=== PATIENT | female | born 2000 | race Caucasian/White ===

== ENCOUNTER 2019-02-28 10:20 | Emergency (ER) | payer SELFPAY ==
[~2019-02-28] VITALS: Ht 167.6 cm; Wt 92.0 kg
[2019-02-28 10:23] VITALS: Ht 167.6 cm; Wt 92.0 kg
--- NOTE | 2019-02-28 10:44 | ERD ---
ER Documentation Chief Complaint Chief Complaint left foot pain/injury HPI Patient is a 18 years old female at 12 weeks gestation presenting to the clinic for severe left ankle pain and swelling since yesterday, sporadically. Nestor lira admits to left ankle injury in August while visiting [place]. Patient denies getting evaluated stating that the pain resolved 2 months later. Patient states that her pain and selling came without any activity while she was sitting with ankle extended. Patient denies taking any OTC medication. Patient admits to low protein diet stating that she avoids meat as much as possible. ROS All systems reviewed and are negative except as per history of present illness. Medications Home Meds Active Scripts Acetaminophen* (Tylophen*) 500 Mg Capsule, 1 CAP PO Q6H PRN for PAIN AND OR ELEVATED TEMP, #20 CAP Prov:GARCIA CASTELLANOS PA-C 02/28/19 Allergies Allergies: Coded Allergies: No Known Allergy (Unverified , 02/28/19) PMhx/Soc History of Surgery: No Anesthesia Reaction: No Hx Neurological Disorder: No Hx Respiratory Disorders: No Hx Cardiac Disorders: No Hx Psychiatric Problems: No Hx Miscellaneous Medical Probl: No FmHx Family History: No diabetes, No coronary disease, No other Physical Exam Vitals Vital Signs Date Temp Pulse Resp B/P (MAP) Pulse Ox O2 O2 Flow FiO2 Time Delivery Rate 02/28/19 99.1 111 20 137/87 96 10:23 (104) Physical Exam Const: No acute distress. Patient sitting on wheelchair comfortably with PEG wrap around left ankle. Head: Atraumatic Eyes: Normal Conjunctiva Resp: Clear to auscultation bilaterally Cardio: Regular rate and rhythm, no murmurs Skin: No petechiae or rashes Back: No midline or flank tenderness Left Ankle Exam: Swelling on lateral side that is tender to palpation. Skin intact. No signs of gross trauma. Neur: Awake and alert Psych: Normal Mood and Affect Result Diagram: 02/28/19 1049 02/28/19 1049 Results 24 hrs Laboratory Tests Test 02/28/19 10:49 White Blood Count 8.1 10^3/ul Red Blood Count 5.14 10^6/ul Hemoglobin 14.6 g/dl Hematocrit 41.6 % Mean Corpuscular Volume 80.9 fl Mean Corpuscular Hemoglobin 28.4 pg Mean Corpuscular Hemoglobin Concent 35.1 g/dl Red Cell Distribution Width 12.1 % Platelet Count 288 10^3/UL Mean Platelet Volume 10.3 fl Immature Granulocytes % 0.500 % Neutrophils % 72.1 % Lymphocytes % 19.9 % Monocytes % 6.1 % Eosinophils % 1.2 % Basophils % 0.2 % Nucleated Red Blood Cells % 0.0 /100WBC Immature Granulocytes # 0.040 10^3/ul Neutrophils # 5.8 10^3/ul Lymphocytes # 1.6 10^3/ul Monocytes # 0.5 10^3/ul Eosinophils # 0.1 10^3/ul Basophils # 0.0 10^3/ul Nucleated Red Blood Cells # 0.0 10^3/ul Sodium Level 139 mmol/L Potassium Level 4.1 mmol/L Chloride Level 105 mmol/L Carbon Dioxide Level 24 mmol/L Anion Gap 10 Blood Urea Nitrogen 4 mg/dl Creatinine 0.54 mg/dl Est Glomerular Filtrat Rate mL/min > 60 mL/min Glucose Level 101 mg/dl Calcium Level 9.6 mg/dl Total Bilirubin 0.5 mg/dl Direct Bilirubin 0.00 mg/dl Indirect Bilirubin 0.5 mg/dl Aspartate Amino Transf (AST/SGOT) 21 IU/L Alanine Aminotransferase (ALT/SGPT) 29 IU/L Alkaline Phosphatase 71 IU/L Total Protein 8.0 g/dl Albumin 4.5 g/dl Globulin 3.50 g/dl Albumin/Globulin Ratio 1.28 Current Medications Medications Dose Sig/Salima Start Time Status Last (Trade) Ordered Route PRN Stop Time Admin Dose Reason Admin 650 mg ONCE ONCE 02/28/19 DC 02/28/19 Acetaminophen PO 11:00 10:41 (Tylenol 02/28/19 11:01 Tab) Procedures/MDM Patient was seen and evaluated for left ankle pain/swelling. CBC, CMP are unremarkable. Left ankle X-Ray revealed Tiny ossific body adjacent to the anterior tibial plafond, seen only on the lateral view. This may be chronic or represent a tiny avulsion fracture. Correlate for acute injury and tenderness to that area. Small lucency in the lateral talar dome may be sequelae of osteochondral injury. Tylenol was administered in ED. Patient is stable and ready for discharge. Patient was advised to f/u with PCP a nd Orthopedic for further evaluation. Patient was given left ankle/foot boot. Patient denied crutches. Leg elevation and Ice. Departure Diagnosis: Primary Impression: Ankle injury Encounter type: initial encounter Laterality: left Qualified Codes: S99.912A - Unspecified injury of left ankle, initial encounter Additional Impression: Ankle fracture Encounter type: initial encounter Fracture type: closed Laterality: left Qualified Codes: S82.892A - Other fracture of left lower leg, initial encounter for closed fracture Patient Instructions: Fracture, Ankle (General) Referrals: [facility] Additional Instructions: Patient advised to return to the ED immediately for new or worsening symptoms. Patient advised to follow up with primary care provider in the next 24-48 hours. Patient verbalized understanding and agrees with treatment plan and course of action. If patient has no primary care they may follow up with [facility] [address] [place] [id number] or [facility] [address] [place] [address] or [facility] [address] [place] [address] GARCIA CASTELLANOS PA-C Feb 28, 2019 10:44
[2019-02-28] MEDS ORDERED: ACETAMINOPHEN 325 MG TAB PO ONE (11:00)
[2019-02-28] MEDS ORDERED: ACET500C5 PO (11:59)
[2019-02-28 12:30] VITALS: BP 123/76; PULSE 90; RESP 20
== END 2019-02-28 12:30 | disposition home or self-care (01) ==
LOC: FTE 10:20
DX: O9A.211 Injury, poisoning and certain other consequences of external causes complicating pregnancy, first trimester (principal); S82.892A Other fracture of left lower leg, initial encounter for closed fracture; X58.XXXA Exposure to other specified factors, initial encounter; Y92.9 Unspecified place or not applicable; Z3A.12 12 weeks gestation of pregnancy
CPT/HCPCS: 36415; 73610; 80053; 85025